=== PATIENT | female | born 1960 | race Caucasian/White ===

== ENCOUNTER 2021-12-21 10:05 | Emergency (ER) | payer MEDICARE ==
[~2021-12-21] VITALS: Ht 175.3 cm; Wt 57.2 kg
[2021-12-21] MEDS ORDERED: HALOPERIDOL2 MG PO (10:24)
[2021-12-21] MEDS ORDERED: VISTARIL25 MG PO (10:25)
[2021-12-21] MEDS ORDERED: VENTOLIN HFA18 GM INH (10:25)
[2021-12-21] MEDS ORDERED: HALOPERIDOL0.5 MG PO (11:13)
== END 2021-12-21 11:27 | disposition home or self-care (01) ==
LOC: ED 10:05
DX: G21.11 Neuroleptic induced parkinsonism (principal); T43.4X5A Adverse effect of butyrophenone and thiothixene neuroleptics, initial encounter; J44.9 Chronic obstructive pulmonary disease, unspecified; F43.10 Post-traumatic stress disorder, unspecified; Z79.899 Other long term (current) drug therapy
CPT/HCPCS: 99284

== ENCOUNTER 2022-03-10 14:28 | Emergency (ER) | payer OTHER, MEDICARE ==
[~2022-03-10] VITALS: Ht 175.3 cm; Wt 60.9 kg
[~2022-03-10 14:28] MED LIST: HALOPERIDOL0.5 MG PO; HALOPERIDOL2 MG PO; VENTOLIN HFA18 GM INH; VISTARIL25 MG PO
[2022-03-10] MEDS ORDERED: HALOPERIDOL1 MG PO (14:46)
[2022-03-10] MEDS ORDERED: INCRUSE ELLI62.5 MCG INH (14:47)
[2022-03-10] MEDS ORDERED: HYDROCODON-ACE1 EA10 PO (17:06)
== END 2022-03-10 17:27 | disposition home or self-care (01) ==
LOC: ED 14:28
DX: S90.31XA Contusion of right foot, initial encounter (principal); S20.219A Contusion of unspecified front wall of thorax, initial encounter; J44.9 Chronic obstructive pulmonary disease, unspecified; V89.2XXA Person injured in unspecified motor-vehicle accident, traffic, initial encounter; Z79.899 Other long term (current) drug therapy
CPT/HCPCS: 71045; 73502; J1885

== ENCOUNTER 2022-06-15 14:39 | Emergency (ER) | payer MEDICARE ==
[~2022-06-15] VITALS: Ht 167.6 cm; Wt 57.7 kg
[~2022-06-15 14:39] MED LIST changes: +HALOPERIDOL1 MG PO; +HYDROCODON-ACE1 EA10 PO; +INCRUSE ELLI62.5 MCG INH
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
== END 2022-06-15 19:27 | disposition home or self-care (01) ==
LOC: ED 14:39
DX: R19.7 Diarrhea, unspecified (principal); J44.9 Chronic obstructive pulmonary disease, unspecified; Z79.899 Other long term (current) drug therapy
CPT/HCPCS: 36415; 80053; 85025; 85610; 86850; 86900; 86901; 99284

== ENCOUNTER 2023-02-04 19:51 | Emergency (ER) | payer MEDICARE ==
[~2023-02-04] VITALS: Ht 167.6 cm; Wt 57.6 kg
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
--- OUTSIDE RECORDS SUMMARY | ~2023-02-04 | XMS | Continuity of Care Document ---
Demographics + + + | Address | [address] [place] [address] | | | [place] [address] | + + + | Preferred Language | Unknown | + + + | Marital Status | Never | + + + | Jew Affiliation | Unknown | + + + | Race | White | + + + | Ethnic Group | Not or | + + + Author + + + | Author | [facility] | + + + | Organization | [facility] | + + + | Address | [address] | | | [place] [address] | + + + | Phone | | + + + Care Team Providers + + + + | Care Copper Miner Name | Role | Phone | + [...]
[2023-02-04 20:10] LABS: BASOPHILS 0.6 % (0-2); EOSINOPHILS 0.3 % (0-6); HEMATOCRIT 43.4 % (35.0-50.0); LYMPHOCYTES 47.1 % (24-44); MCH 33.4 (27-36); MCHC 34.5 g/dl (30-36); MCV 96.9 fl (81-99); MONOCYTES 6.2 % (0-12); NEUTROPHILS 45.8 % (39-80); PLATELET COUNT 217 K/uL (140-440); RBC 4.48 M/ul (4.3-5.7); RDW 13.5 (10.5-15.0)
[2023-02-04 20:39] LABS: ALBUMIN 4.1 g/dL (3.4-5.0); ALBUMIN/GLOBULIN RATIO 1.28 (1.1-2.4); ANION GAP 14.5 (7-21); BILIRUBIN, TOTAL 0.4 ng/dL (0.2-1.0); BUN/CREATININE RATIO 12.85 (6.0-28.6); CALCIUM 9.3 mg/dL (8.5-10.1); CREATININE, SERUM 0.7 mg/dL (0.55-1.02); MAGNESIUM 1.9 mg/dL (1.8-2.4); POTASSIUM 3.5 mmol/L (3.5-5.1); PROTEIN, TOTAL 7.3 g/dL (6.4-8.2); TSH, 3RD GENERATION 4.508 uIU/mL (0.358-3.740)
[2023-02-04 20:56] LABS: AMPHETAMINES, UR NEGATIVE (NEGATIVE); BARBITURATES, UR NEGATIVE (NEGATIVE); BENZODIAZEPINES, UR NEGATIVE (NEGATIVE); BUPRENORPHINE,UR NEGATIVE (NEGATIVE); COCAINE, UR NEGATIVE (NEGATIVE); MARIJUANA (THC), UR NEGATIVE (NEGATIVE); MDMA, UR NEGATIVE (NEGATIVE); METHADONE, UR NEGATIVE (NEGATIVE); METHAMPHETAMINE, UR NEGATIVE (NEGATIVE); OPIATES, UR NEGATIVE (NEGATIVE); OXYCODONE, UR NEGATIVE (NEGATIVE); PHENCYCLIDINE, UR NEGATIVE (NEGATIVE); TRICYCLIC ANTIDEPRESSANT, UR NEGATIVE (NEGATIVE)
[2023-02-04 21:21] VITALS: BP 134/74
[2023-02-06 11:04] LABS: TRIIODOTHYRONINE,FREE FREE T3 2.7 pg/mL (2.5-4.3)
--- NOTE | 2023-02-06 15:36 | EKG ---
[facility] [address] [facility] [place] [address] Signed Sinus rhythm with premature atrial complexes Otherwise normal ECG No previous ECGs available Confirmed by AIME BERRY MD ([id number]) on 02/06/2023 3:36:19 PM Electronically Signed By: AIME BERRY 02/06/23 1536 PATIENT NAME: GIAN ERAZO Electrocardiogram DATE OF : 58 PHYSICIAN: AIME BERRY REPORT #: [id number] REPORT IS CONFIDENTIAL AND NOT TO BE RELEASED WITHOUT AUTHORIZATION
== END 2023-02-04 21:20 | disposition home or self-care (01) ==
LOC: ED 19:51
PROVIDERS: Internal Medicine
DX: R07.89 Other chest pain (principal); J44.9 Chronic obstructive pulmonary disease, unspecified; F43.10 Post-traumatic stress disorder, unspecified; Z88.1 Allergy status to other antibiotic agents; Z88.8 Allergy status to other drugs, medicaments and biological substances; Z79.899 Other long term (current) drug therapy
CPT/HCPCS: 36415; 71045; 80053; 83735; 83880; 84439; 84443; 84481; 84484; 85025; 93005; 93010; 99285-25; A9270

== ENCOUNTER 2023-12-30 08:40 | Emergency (ER) | payer MEDICARE ==
[~2023-12-30] VITALS: Ht 170.2 cm; Wt 61.6 kg
[~2023-12-30 08:40] MED LIST changes: +WELLBUTRIN XL150 MG PO
[2023-12-30] MEDS ORDERED: NITROGLYCERIN 0.4 MG SUBL SL PRN (09:00)
[2023-12-30] MEDS ORDERED: ASPIRIN 325 MG TAB PO ONE (09:00)
[2023-12-30 09:09] LABS: BASOPHILS 0.6 % (0-2); EOSINOPHILS 0.1 % (0-6); HEMATOCRIT 42.3 % (35.0-50.0); HEMOGLOBIN 14.8 g/dL (12.0-18.0); LYMPHOCYTES 36.7 % (24-44); MCH 35.2 (27-36); MCV 100.6 fl (81-99); MONOCYTES 7.7 % (0-12); NEUTROPHILS 54.9 % (39-80); PLATELET COUNT 246 K/uL (140-440); RBC 4.21 M/ul (4.3-5.7); RDW 12.7 (10.5-15.0)
[2023-12-30 09:17] LABS: PARTIAL THROMBOPLASTIN TIME 26.3 Sec (22.9-41.3)
[2023-12-30 09:21] LABS: INR 0.9 (0.80-1.30); PROTIME 11.5 Sec (11.2-14.2)
[2023-12-30 09:30] LABS: ALBUMIN 3.9 g/dL (3.4-5.0); ALBUMIN/GLOBULIN RATIO 1.08 (1.1-2.4); ANION GAP 16.6 (7-21); BILIRUBIN, TOTAL 0.7 ng/dL (0.2-1.0); BUN/CREATININE RATIO 6.57 (6.0-28.6); CALCIUM 9.1 mg/dL (8.5-10.1); CREATININE, SERUM 0.76 mg/dL (0.55-1.02); MAGNESIUM 1.9 mg/dL (1.8-2.4); POTASSIUM 3.6 mmol/L (3.5-5.1); PROTEIN, TOTAL 7.5 g/dL (6.4-8.2)
[2023-12-30 11:34] VITALS: BP 152/94
--- NOTE | 2023-12-30 15:41 | EKG ---
[facility] [address] [facility] [place], [place] [address] Signed Normal sinus rhythm Normal ECG No previous ECGs available Confirmed by Ramón Alcazar ([id number]) on 12/30/2023 3:41:29 PM Electronically Signed By: RAMÓN ALCAZAR MD 12/30/23 1541 PATIENT NAME: GIAN ERAZO Electrocardiogram DATE OF : 58 PHYSICIAN: RAMÓN ALCAZAR MD REPORT #: [id number] REPORT IS CONFIDENTIAL AND NOT TO BE RELEASED WITHOUT AUTHORIZATION
== END 2023-12-30 11:34 | disposition home or self-care (01) ==
LOC: ED 08:40
PROVIDERS: Emergency Medicine
DX: R07.89 Other chest pain (principal); K80.20 Calculus of gallbladder without cholecystitis without obstruction; J44.89 Other specified chronic obstructive pulmonary disease; Z88.0 Allergy status to penicillin; Z88.8 Allergy status to other drugs, medicaments and biological substances; Z79.899 Other long term (current) drug therapy
CPT/HCPCS: 36415; 71045; 74176; 80053; 83690; 83735; 83880; 84484; 85025; 85379; 85610; 85730; 93005; 93010; 99285-25